=== PATIENT | male | born 1960 | race Caucasian/White ===

== ENCOUNTER 2021-06-29 09:41 | Outpatient (CLI) | payer BC, SELFPAY ==
--- NOTE | 2021-06-29 09:52 | CT_ITS ---
WS: [id number] NONCONTRAST CT LEFT SHOULDER. TECHNIQUE: Noncontrast CT LEFT shoulder with coronal and sagittal reformatted images. CLINICAL INFORMATION: PAIN IN LEFT SHOULDER/PAIN IN L SHOULDER JOINT COMPARISON: None. DLP: 956.[address] scans at [facility] use at least one of these dose optimization techniques: automated e xposure control; mA and/or kV adjustment per patient size (includes targeted exams where dose is matc hed to clinical indication); or iterative reconstruction. FINDINGS: Moderate degenerative arthritis AC joint. Mild downsloping acromion. Hypertrophic spurring at the AC joint. Mild narrowing of the subacromial space. Clavicle appears normal. No acute clavicular fracture s. Normal humeral head and neck. No acute fractures. Normal coracoid. Normal glenoid. Normal scapula. Pa rtially visualized LEFT ribs are normal. Visualized LEFT lung is well aerated. Fibrosis LEFT lung ape x. Moderate degenerative narrowing glenohumeral joint. CT/CT shoulder LT wo con* [id number] IMPRESSION: 1. Moderate degenerative arthritis AC joint and glenohumeral joint. 2. Mild downsloping of the acromion. Subacromial space is preserved. 3. Normal clavicle. 4. No acute fractures.
== END 2021-06-29 09:42 | disposition home or self-care (01) ==
LOC: RAD 09:49
PROVIDERS: PCP Nurse Practitioner Family; Visit Provider Nurse Practitioner Family
DX: M19.012 Primary osteoarthritis, left shoulder (principal)
CPT/HCPCS: 73200

== ENCOUNTER 2023-07-12 12:27 | Outpatient (CLI) | payer BC, SELFPAY ==
[2023-07-12 13:19] VITALS: PULSE 80; RESP 18; O2SAT 96
[2023-07-12] MEDS: albuterol 2.5 mg/3 mL Neb INHALATION (13:19)
--- NOTE | 2023-07-12 13:35 | XRR_ITS ---
PROCEDURE INFORMATION: Exam: XR Chest Exam date and time: 07/12/2023 1:38 PM Age: 63 years old Clinical indication: Cough; Additional info: Chronic cough TECHNIQUE: Imaging protocol: Radiologic exam of the chest. Views: 2 views. COMPARISON: CT shoulder LT wo con* [id number] 06/29/2021 10:42 AM FINDINGS: Lungs: Unremarkable. No consolidation. Pleural spaces: Unremarkable. No pleural effusion. No pneumothorax. Heart/Mediastinum: Unremarkable. No cardiomegaly. Bones/joints: Unremarkable. XR/XR chest 2V* [id number] IMPRESSION: No acute findings.
== END 2023-07-12 12:28 | disposition home or self-care (01) ==
PROVIDERS: PCP Family Medicine; Visit Provider Family Medicine
DX: R05.3 Chronic cough (principal)
CPT/HCPCS: 71046; 94060; 94726; 94729